=== PATIENT | female | born 1975 | race African-American/Black ===

== ENCOUNTER 2016-10-29 01:46 | Emergency (ER) | payer OTHER ==
[~2016-10-29] VITALS: Ht 165.1 cm; Wt 83.9 kg
--- NOTE | ~2016-10-29 | EKG ---
PATIENT: JILLIAN CALDERÓN UNIT #: [id number] Ventricular Rate: 99 BPM Atrial Rate: 99 BPM P-R Interval: 172 ms QRS Duration: 68 ms Q-T Interval: 316 ms QTC Calculation(Bezet): 405 ms P Elizabeth: 62 degrees Calculated R Elizabeth: 58 degrees Calculated T Elizabeth: 7 degrees Diagnosis Line: Normal sinus rhythm Diagnosis Line: Normal ECG Diagnosis Line: No previous ECGs available Diagnosis Line: Confirmed by HUSSEIN BROUSSARD MD ([id number]) on 10/30/2016 Diagnosis Line: 3:00:27 PM INTERPRETING MD: AARTI VALDIVIA
--- NOTE | ~2016-10-29 | CT4 ---
[facility] A Service of [facility] RADIOLOGY TEXT RESULTS PATIENT: JILLIAN CALDERÓN LOCATION: [facility] : 79 UNIT #: [id number] AGE: [address]: Leonardo Head MD SEX: F ORDER DR: [id number] [facility] [address] [place], [place] [address] [id number] MR#: [id number] Acc #: [id number] NAME: JILLIAN CALDERÓN : 1975 SEX: F STUDY DATE/TIME: 10/29/2016 04:58 UNIT: [facility] ROOM: STUDY DESCRIPTION: CT Abd and Pelv Wo Cont Attending Physician: Leonardo Head M.D. Ordering Physician: Kelechi Armenta M.D. Primary Care Physician: Navneet Guillermo M.D. MEDICAL IMAGING REPORT This report is preliminary unless electronic signature is present EXAM Abdomen and pelvis CT, 10/29/16 at 04:58 INDICATIONS Upper abdominal pain and shortness of air for the last 4-5 days. TECHNIQUE Axial noncontrast images were obtained through the abdomen and pelvis. Multiplanar reformats were obtained. No comparison. This CT exam was performed with one or more of the following radiation dose reduction techniques: automatic exposure control, adjustment of mA and/or kV according to patient size, and iterative reconstruction. FINDINGS Abdomen: The exam is motion degraded. Alveolar opacities in the lung bases basically reflect atelectasis. There is some septal thickening that could reflect early edema. Correlate clinically. There is a 6 mm left lower lobe nodule. There is a 4 mm right middle lobe nodule. Consider followup chest CT in 6 months. Gallbladder grossly normal although poorly evaluated. No definite renal or ureteral stones. No hydronephrosis. Unenhanced solid organs are grossly normal. Unopacified GI tract grossly normal. Pelvis: Tubal ligation clips are present. One of these is displaced in the anterior mid pelvis. Solid pelvic organs grossly normal. The appendix is normal. The remainder of the unopacified GI tract is grossly normal as well. Another tubal ligation clip is displaced in the right lower quadrant anteriorly. There is degenerative disease in the lower lumbar spine. IMPRESSION [facility]. [facility] A Service of [facility] RADIOLOGY TEXT RESULTS PATIENT: JILLIAN CALDERÓN LOCATION: [facility] : 79 UNIT #: [id number] AGE: [address]: Leonardo Head MD SEX: F ORDER DR: 1. Motion degraded study. 2. Left lower lobe and right middle lobe noncalcified nodules. There is some probable atelectasis in the bases. However, there is suggestion of some septal thickening which could indicate developing pulmonary edema. Correlate clinically. Chest CT followup in 6 months recommended. 3. No definite renal or ureteral stones. Hydronephrosis. 4. Grossly normal unopacified GI tract including the appendix. 5. Tubal ligation with at least 2 displaced tubal addition clips in the pelvis. Dictated by... Benoit Toure Jr., M.D. THIS IS AN ELECTRONICALLY VERIFIED REPORT Benoit Toure Jr., M.D. at 10/30/2016 4:57 AM HAYDEE/ryanne TD: 10/29/2016 23:52 JOB #: [id number] MEDICAL IMAGING REPORT Page 1 of 1 COPY
[~2016-10-29 01:46] MED LIST: BACTRIM DS TABL1 TA1 PO; ERYTHROMYC3.5 GM OPT OU; KEFLEX PO; LORTAB 5/500 TA1 TA1 PO; PERCOCET 51 UDTAB 5/ PO; SALINE WOUND W210 M1; ZYVOX600 MG PO
[2016-10-29 03:03] LABS: POC - CKMB <1.0 ng/mL (0.0-7.9); POC - TROPONIN <0.05 ng/mL (<=0.05)
[2016-10-29 03:28] LABS: BASOPHIL% 0.4 % (0-2.5); EOSINOPHIL% 0.5 % (0.0-7.0); HEMATOCRIT 39.8 % (35.0-45.0); HEMOGLOBIN 13.2 gm/dL (12.0-16.0); LYMPHOCYTE% 11.9 % (17.0-45.0); MEAN CELL VOLUME 89.7 FL (83-96); MEAN CORPUSCULAR HEMOGLOBIN 29.7 PG (28-34); MEAN CORPUSCULAR HGB CONC 33.2 g/dL (30-36); MEAN PLATELET VOLUME 9.5 FL (6.5-11.5); MONOCYTE# 1.1 X10e3 (0-1.0); MONOCYTE% 12.5 % (3.0-12.0); NEUTROPHIL# 6.5 X10e3 (1.5-7.1); NEUTROPHIL% 74.7 % (40-75); PLATELET COUNT 185 X10e3 (140-420); RED BLOOD COUNT 4.44 X10e (3.90-5.30); RED CELL DISTRIBUTION WIDTH 16.1 % (11.0-15.5); WHITE BLOOD COUNT 8.7 X10e3 (4.0-10.5)
[2016-10-29 03:29] LABS: DIFF IND NO
[2016-10-29 03:50] LABS: ALBUMIN SERUM 3.3 g/dL (3.5-5.0); BILIRUBIN, DIRECT 0.2 mg/dL (0.0-0.2); BILIRUBIN,TOTAL 1.2 mg/dL (0.2-2.0); BUN/CREATININE RATIO 14.44; CALCIUM SERUM 8.5 mg/dL (8.4-10.2); CREATININE SERUM 0.9 mg/dL (0.6-1.4); GLOM FILT RATE Estimated 93.4 mL/min (>60); POTASSIUM 3.7 mmol/L (3.5-5.1); PROTEIN TOTAL SERUM 8.3 g/dL (6.0-8.3)
[2016-10-29 05:14] LABS: POC - CKMB <1.0 ng/mL (0.0-7.9); POC - TROPONIN <0.05 ng/mL (<=0.05)
[2016-10-29 06:12] LABS: URINE SOURCE CLEAN CATCH
[2016-10-29 06:16] LABS: URINE APPEARANCE CLEAR; URINE BILIRUBIN NEG (NEG); URINE BLOOD NEG (NEG); URINE COLOR DK YELLOW; URINE GLUCOSE NEG (NEG); URINE KETONE TRACE (NEG); URINE LEUKOCYTE ESTERASE TRACE (NEG); URINE NITRATE NEG (NEG); URINE PH 6.5 (5-8); URINE PROTEIN 1+ (NEG); URINE SPECIFIC GRAVITY 1.032 (1.003-1.035)
[2016-10-29 06:19] LABS: CULTURE INDICATED? YES; URINE BACTERIA AUWI 1+ (NEGATIVE); URINE SQUAMOUS EPITHELIAL CELL FEW /[HPF]
== END 2016-10-29 07:57 | disposition home or self-care (01) ==
LOC: CED 01:46
PROVIDERS: Emergency Medicine
DX: R10.9 Unspecified abdominal pain (principal); R07.9 Chest pain, unspecified; I25.10 Atherosclerotic heart disease of native coronary artery without angina pectoris; E78.5 Hyperlipidemia, unspecified; F17.210 Nicotine dependence, cigarettes, uncomplicated; Z79.899 Other long term (current) drug therapy
CPT/HCPCS: 36415; 74176; 80048; 80076; 81003; 82553; 84484; 84703; 85025; 87086; 93005; 96361; 96374; 99285; J1885